=== PATIENT | female | born 1990 | race African-American/Black ===

== ENCOUNTER 2019-12-14 19:24 | Emergency (ER) | payer OTHER, SELFPAY ==
--- NOTE | 2019-12-14 19:38 | ED.GENADULT ---
HPI - General Adult General Chief complaint: Upper Respiratory Infection Stated complaint: sob/allergies Source: patient and RN notes reviewed Mode of arrival: ambulatory Limitations: no limitations History of Present Illness HPI narrative: This is a 29 years old female presents to the office for medication refill. States, she gets allergies trigger once a year during this time of year. However, she does not have a doctor now and she ran out of her inhaler. States, about three days ago she develops tightness in her chest when she takes a deep breathe. Associated with slight head congestion. Denies fever, cough or nausea. No treatment prior to arrival. Related Data Home Medications Medication Instructions Recorded Confirmed albuterol sulfate [ProAir HFA] 2 puff INHALATION QID PRN 12/14/19 12/14/19 Allergies Allergy/AdvReac Type Severity Reaction Status Date / Time peanut Allergy Swelling Verified 12/14/19 19:45 of Lip/Tongue/Throat Review of Systems Review of Systems: Narrative: CONSTITUTIONAL: Denies fever, chills ENT: Denies sore throat, otalgia. CARDIOVASCULAR: Denies chest pain RESPIRATORY: reports dyspnea with wheezing at times; denies cough. GASTROINTESTINAL: Denies abdominal pain, nausea, vomiting, diarrhea. GENITOURINARY: Denies urinary symptoms SKIN: Denies rash MUSCULOSKELETAL: Denies acute back pain NEUROLOGIC: Denies lightheaded PMFSH Past Medical History Medical History Asthma seasonal induced Social History Social History Smoking status: Never smoker Second hand tobacco smoke exposure: Yes (boyfriend smokes) Comments At time of signature, I agree with nursing past medical, surgical, social and family history. There is no relevant family history pertinent to the presenting complaint. Exam Narrative: Exam Narrative: GENERAL: This is a well-nourished, well-developed patient, in no apparent distress. EARS: External ears normal, auditory canals clear and without drainage, TMs normal without perforation. Hearing grossly intact. NOSE: External nose normal with no obvious nasal discharge, nares without redness, no rhinorrhea. THROAT: Mucous membranes moist, posterior pharynx clear with tonsils 2+ without erythema or exduative. NECK: Neck supple, non-tender without lymphadenopathy, masses or thyromegaly. CARDIOVASCULAR: Regular rate and rhythm without murmurs, gallops, or rubs. RESPIRATORY: Clear to auscultation. Breath sounds equal bilaterally. No wheezes, rales, or rhonchi. GASTROINTESTINAL: Abdomen soft, non-tender, nondistended. Bowel sounds are active. No guarding. SKIN: warm, intact with no suspicious lesions or rash, good texture and turgor. NEURO: awake, alert, and oriented to person, place and time. There were no obvious focal neurologic abnormalities. Steady gait Giovanni Coma Scale Eye Opening: Spontaneous 4 Giovanni Coma Scale Motor: Obeys Commands 6 [place] Coma Scale Verbal: Oriented 5 Medical Decision Making MDM Narrative Medical decision making narrative: Elevated BP noted: patient is informed that they may have pre-hypertension or hypertension based on a blood pressure reading in the department. I recommend the patient call the primary care provider listed on their discharge instructions or a physician of their choice this week to arrange follow-up for further evaluation of possible pre-hypertension or hypertension within 1-2week. Discharge instructions reviewed with patient, as well as provided in writing per nursing staff. The instructions also include specific and strict return/GO TO THE ER as well as f/u information. All questions have been answered, and the patient deny any further questions with discharge and discharge plan. Differential Diagnosis Differential Diagnosis: Allergic Rhinitis, Upper respiratory cough syndrome, Pharyngitis, Sinusitis, Bron
[2019-12-14 19:40] VITALS: BP 148/90; PULSE 97; RESP 16; TEMP 36.9; O2SAT 100
== END 2019-12-14 19:52 | disposition home or self-care (01) ==
PROVIDERS: Emergency Provider Nurse Practitioner
DX: J45.909 Unspecified asthma, uncomplicated (principal)
CPT/HCPCS: 99201; G0463

== ENCOUNTER 2020-07-11 19:20 | Emergency (ER) | payer OTHER, SELFPAY ==
[2020-07-11 19:25] VITALS: BP 131/78; PULSE 98; RESP 17; TEMP 35.8; O2SAT 100
--- NOTE | 2020-07-11 21:06 | ED.FEMALEGU ---
HPI - Female Genitourinary General Chief complaint: Vaginal Bleeding Stated complaint: 17 wks preg, spotting, cramping, lightheaded Time Seen by Provider: 07/11/20 21:02 Source: patient Mode of arrival: ambulatory Limitations: no limitations History of Present Illness HPI Narrative: Patient is a 30-year-old female G1, P5 currently 17 weeks who presents to the emergency department for evaluation of vaginal bleeding. Patient reports light spotting this morning that occurred when she awakened. She denied any lower pelvic pain, dysuria urgency. No recent sexual intercourse. No bleeding throughout this . Patient has followed at [place] gynecology office with Dr. NUNEZ. Patient states her blood type requires her to get RhoGam, RhoGam has not been administered at this stage in . Patient denies any large blood clots, vaginal discharge. No contraction-like pain. She denies any abdominal pain. She denies fever, chills, chest pain, shortness of breath. Patient states this has otherwise been uncomplicated. Related Data Home Medications Medication Instructions Recorded Confirmed [id number] 1 tablet PO DAILY 07/11/20 07/11/20 [] Allergies Allergy/AdvReac Type Severity Reaction Status Date / Time peanut Allergy Swelling Verified 07/11/20 19:34 of Lip/Tongue/Throat Review of Systems Review of Systems: Narrative: CONSTITUTIONAL: Denies fever, chills, or sweats. EYES: Denies visual changes, redness, or discharge. ENT: Denies rhinorrhea, congestion, sore throat, or otalgia. CARDIOVASCULAR: Denies chest pain, palpitations, or edema. RESPIRATORY: Denies cough or dyspnea. GASTROINTESTINAL: Denies abdominal pain, nausea, vomiting, or diarrhea. GENITOURINARY: Denies dysuria or hematuria. Reports vaginal bleeding. SKIN: Denies rash or itching. MUSCULOSKELETAL: Denies back pain, joint pain, or myalgia. NEUROLOGIC: Denies headache, numbness, or weakness. [facility] Past Medical History Medical History (Updated 07/11/20 @ 23:18 by Carline Mills MD) Asthma seasonal induced Social History Social History Smoking status: Never smoker Second hand tobacco smoke exposure: Yes (boyfriend smokes) Gender identity (if verbalized by the patient): Female Exam Narrative: Exam Narrative: GENERAL: Awake, alert, conversant HEAD: Normocephalic, atraumatic. EYES: PERRLA and EOMI. ENT: Nares clear, no rhinorrhea or epistaxis. Mucous membranes moist. NECK: Supple. CHEST: No respiratory distress, breathing even and non labored HEART: Regular rate, sinus rhythm ABDOMEN:Non distended, non tender, fundus palpable below the umbilicus, nontender : Labia majora and minora normal without lesions. Vagina without blood. No cervical motion tenderness. No adnexal tenderness or fullness bilaterally. No purulent discharge present, white mucoid discharge present. EXTREMITIES: Normal range of motion. No edema. SKIN: Warm, dry, no rash. NEURO:No focal deficits. Alert and oriented x3 Course Vital Signs Vital signs: Vital Signs Temperature 35.8 C L 07/11/20 19:25 Pulse Rate 98 07/11/20 19:25 Respiratory Rate 17 07/11/20 19:25 Blood Pressure 131/78 07/11/20 19:25 Pulse Oximetry 100 07/11/20 19:25 Temperature 35.8 C L 07/11/20 19:25 Pulse Rate 92 07/11/20 22:17 Respiratory Rate 17 07/11/20 19:25 Blood Pressure 118/84 07/11/20 22:17 Pulse Oximetry 100 07/11/20 19:25 MDM - Female Genitourinary MDM Narrative Medical decision making narrative: Patient presented for evaluation of spotting in the setting of second trimester . At the time of assessment, ABCs are intact and vital signs are stable. I did a pelvic exam without doing a cervical exam due to patient stage in , unknown if patient has placenta previa. There is no blood present on exam. There is white mucoid discha
[2020-07-11 21:34] LABS: Basophils Percent Auto 0.4 % (0.2-1.2); Eosinophils Absolute Auto 0.2 K/mm3 (0-0.3); Hematocrit 37.8 % (37.0-47.0); Hemoglobin 12.8 g/dL (12.0-15.0); Immature Granulocyte Absolute 0.07 K/mm3 (0.00-0.031); Immature Granulocyte Percent A 0.9 % (0-0.5); Lymphocytes Absolute Auto 1.79 K/mm3 (0.9-3.2); Lymphocytes Percent Auto 23.9 % (18.3-44.2); Mean Corpuscular HGB Conc 33.9 g/dl (32-36); Mean Corpuscular Hemoglobin 30.1 pg (26-34); Mean Corpuscular Volume 88.9 fl (80-100); Mean Platelet Volume 9.3 fl (7.4-10.4); Monocytes Absolute Auto 0.5 K/mm3 (0.1-0.6); Monocytes Percent Auto 6.3 % (2.6-8.5); Neutrophils Percent Auto 66.5 % (45.5-73.1); Platelet Count Result 262 k/mm3 (150-375); Red Blood Count 4.25 M/mm3 (4.2-5.4); Red Cell Distribution Width 12.4 % (11.5-14.5); White Blood Count 7.5 K/mm3 (4.5-10.0)
--- NOTE | 2020-07-11 21:37 | PC.NURSE ---
room set up for pelvic exam. labs pending. will hold on SL for now. patient aware. no questions.
--- NOTE | 2020-07-11 21:42 | PC.NURSE ---
OB RN here to check FHT.
[2020-07-11 21:45] LABS: Alanine Aminotransferase 10 U/L (4-35); Albumin Level 3.8 g/dL (3.5-5.1); Alkaline Phosphatase 45 U/L (38-126); Anion Gap 8 mmol/L (8-16); Aspartate Amino Transferase 19 U/L (14-36); Bilirubin,Total 0.2 mg/dL (0.2-1.3); Blood Urea Nitrogen 6 mg/dL (7-17); Calcium 9.2 mg/dL (8.4-10.2); Carbon Dioxide 28 mmol/L (22-30); Chloride 102 mmol/L (98-107); Estimated CRCL calculation 171 ml/min; Estimated Glomerular Filt Rate > 60; Glucose 94 mg/dL (65-105); INR 0.9; Prothrombin Time 11.6 Seconds (11.1-14.7); Sodium 138 mmol/L (137-145)
[2020-07-11 21:46] LABS: Partial Thromboplastin Time 27.4 SECONDS (22.3-36.8)
--- NOTE | 2020-07-11 21:47 | PC.NURSE ---
FHT dopplered at 164 per OB RN, Dr. Mills aware.
[2020-07-11 22:12] VITALS: BP 127/69; PULSE 77
[2020-07-11 22:16] VITALS: BP 117/71; PULSE 89
--- NOTE | 2020-07-11 22:16 | PC.NURSE ---
provider in room for pelvic exam. on call pharmacy technician present to assist.
[2020-07-11 22:17] VITALS: BP 118/84; PULSE 92
[2020-07-11 22:53] LABS: Add Urine Microscopic? YES; Appearance Urine Clear (Clear); Bilirubin Urine Negative (Negative); Blood Urine Negative (Negative); Color Urine Yellow (Yellow); Glucose Urine UA Negative (Negative); Ketones Urine Negative (Negative); Leukocyte Esterase Ur Negative LEU/UL (Negative); Mucus Urine Few /lpf; Nitrate Urine Negative (Negative); Protein Urine Negative (Negative); RBC Urine 0-2 /hpf (0-2); Specific Grav Ur 1.028 (1.001-1.035); Squamous Epithelial Cell Urine Occasional /hpf (Few); WBC Urine 0-3 /hpf
[2020-07-11] MEDS: RHO(D) IMMUNE GLOBULIN 300 MCG SYRINGE IM (22:57)
[2020-07-11 23:46] VITALS: BP 118/84; PULSE 81; RESP 16; TEMP 37.1; O2SAT 100
== END 2020-07-11 23:47 | disposition home or self-care (01) ==
PROVIDERS: Emergency Provider Emergency Medicine
DX: O20.9 Hemorrhage in early pregnancy, unspecified (principal); O23.592 Infection of other part of genital tract in pregnancy, second trimester; Z3A.17 17 weeks gestation of pregnancy; Z77.22 Contact with and (suspected) exposure to environmental tobacco smoke (acute) (chronic)
CPT/HCPCS: 36415; 80053; 81001; 84702; 85025; 85461; 85610; 85730; 90384; 96372; 99284; J2790

== ENCOUNTER 2020-08-24 11:57 | Observation (INO) | payer OTHER, MEDICAID, SELFPAY ==
--- NOTE | ~2020-08-24 | US_ITS ---
EXAMINATION: US OB limited DATE: 08/24/2020 13:32 INDICATION: Vaginal bleeding. Second trimester. TECHNIQUE: Real-time ultrasound of the pelvis was performed. COMPARISON: None. FINDINGS: There is a single fetus in transverse lie. The placenta is posterior, 1.3 cm from the cervix. No hem atoma. heart rate is 131 beats per minute (bpm). The amniotic fluid volume is subjectively norm al. IMPRESSION: 1. Single living fetus in transverse lie. 2. Low lying placenta. Reviewed, dictated and finalized at location B. [employer]
[2020-08-24 11:57] VITALS: BMI 27.6
[2020-08-24 12:13] VITALS: BP 113/61; PULSE 92
[2020-08-24 12:16] VITALS: BP 111/53; PULSE 86
[2020-08-24 12:31] VITALS: BP 115/64; PULSE 82
[2020-08-24 12:46] VITALS: BP 124/67; PULSE 78
--- NOTE | 2020-08-24 12:50 | WPDCN ---
Assessment and Plan Assessment and plan (1) Pelvic pain affecting , antepartum: Code(s): O26.899 - Other specified related conditions, unspecified trimester; R10.2 - Pelvic and perineal pain Status: Acute Assessment and Plan: No signs of labor. Most likely positional pain. Urine analysis. (2) Spotting affecting : Code(s): O26.859 - Spotting complicating , unspecified trimester Status: Acute Assessment and Plan: No blood seen in vagina or at cervix on exam. Will check blood type and antibody and rhogam due to history of noticing blood in underwear this morning. HPI Data of Consult Date/Time: 08/24/20 12:50 Requesting Physician: Edwin Bravo MD Primary Care Provider: CERTIFIED WELDER PHYSICIAN Consult Narrative Narrative: Farheen Jama is a 30 year old female at 22 weeks presented to L and D for complaints of pelvic pain/pressure for two days. She states she had spotting when she wiped,this morning. She states PNC significant for spotting intermittently since beginning of . She states blood type is O neg. She had recent ultrasound and was told placenta is low lying. She states she was not put on pelvic rest. Denies dysuria. Has been cleaning up this weekend. Denies intercourse recently. On L and D, reassuring tracing FHT 145, mild irritability. Review of Systems Review of Systems: All systems reviewed & are unremarkable except as noted in HPI and below Constitutional: Constitutional: Reports no additional constitutional complaints and Denies headache(s) Eyes: Eyes: Denies spots in vision ENT: Reports system reviewed and no additional complaints, except as documented and Denies headache(s) Cardiovascular: Cardiovascular: Denies chest pain and Denies dyspnea Respiratory: Respiratory: Denies dyspnea Genitourinary: Genitourinary: Reports no additional female genitourinary complaints Integumentary/Breasts: Skin/Breast: Denies rash Neurologic: Denies headache(s) Hematologic/Lymphatic: Hematologic/Lymphatic: Reports no additional hematologic/lymphatic complaints Allergic/Immunologic: Allergic/Immunologic: Reports no additional allergic/immunologic complaints PMFSH Past Medical History Medical History (Updated 08/24/20 @ 13:03 by Edwin Bravo MD) Asthma seasonal induced Social History Social History Smoking status: Never smoker Second hand tobacco smoke exposure: Yes (boyfriend smokes) Gender identity (if verbalized by the patient): Female Meds Home Medications and Allergies Home Medications Medication Instructions Recorded Confirmed Type acetaminophen 500 mg PO Q6H PRN #30 cap 07/11/20 Rx metronidazole [Flagyl] 500 mg PO Q12H 10 Days #20 tablet 07/11/20 Rx [id number] 1 tablet PO DAILY 07/11/20 07/11/20 History [] Allergies Allergy/AdvReac Type Severity Reaction Status Date / Time peanut Allergy Swelling Verified 07/11/20 19:34 of Lip/Tongue/Throat Vital Signs Vital Signs - 24 hr 08/24/20 12:13 08/24/20 12:16 08/24/20 12:31 Pulse Rate 92 86 82 Blood Pressure 113/61 111/53 L 115/64 08/24/20 12:46 Pulse Rate 78 Blood Pressure 124/67 Exam Const: General: comfortable and no acute distress Eyes: General: appearance normal, both eyes and all related structures Resp: Effort & Inspection: normal respiratory effort GI: Other: no fundal tenderness, mild suprapubic tenderness : Other: sterile speculum exam- NEFG, vagina normal, cervix visualized, not visually dilated, no blood or abnormal appearing discharge. Extrem: Other: nontender Psych: Appearance: grossly normal and well kempt
[2020-08-24 13:01] VITALS: BP 118/46; PULSE 78
[2020-08-24 13:18] LABS: Add Urine Microscopic? YES; Appearance Urine Clear (Clear); Bacteria Urine Trace /hpf; Bilirubin Urine Negative (Negative); Blood Urine Negative (Negative); Color Urine Yellow (Yellow); Glucose Urine UA Negative (Negative); Ketones Urine Negative (Negative); Leukocyte Esterase Ur Negative LEU/UL (Negative); Mucus Urine Rare /lpf; Nitrate Urine Negative (Negative); Protein Urine Negative (Negative); RBC Urine 0-2 /hpf (0-2); Specific Grav Ur 1.014 (1.001-1.035); Squamous Epithelial Cell Urine Rare /hpf (Few); WBC Urine 0-3 /hpf
--- NOTE | 2020-08-24 13:32 | OBADM ---
This patient, Farheen Jama, admitted to the OB room OB Post 115 for observation. Patient/family oriented to hospital policies and general routines including ID bracelet, bed and alarms, visiting hours, pain management, procedures, bathroom and other care routines, personal items, smoking policy, room service/diet, and visiting hours. Patient/Family are encouraged to report perceived risks to care and to ask questions if they do not understand what they are told or what they should do. Pt. reports vaginal bleeding accompanied with abdominal pain. She receives her PNC in [place] and states she has had spotting her whole and has a known Low lying placenta. Abdomen soft to palpation and no vaginal bleeding visualized at this time.
== END 2020-08-24 16:14 | disposition home or self-care (01) ==
PROVIDERS: Admitting Provider Obstetrics & Gynecology; Visit Provider Obstetrics & Gynecology
DX: O26.852 Spotting complicating pregnancy, second trimester (principal); O26.892 Other specified pregnancy related conditions, second trimester; R10.2 Pelvic and perineal pain; Z3A.22 22 weeks gestation of pregnancy; O44.42 Low lying placenta NOS or without hemorrhage, second trimester
CPT/HCPCS: 36415; 76815; 81001; 85460; 86850; 86880; 86900; 86901; G0378; G0379

== ENCOUNTER 2021-03-09 19:55 | Emergency (ER) | payer OTHER, MEDICAID, SELFPAY ==
--- NOTE | ~2021-03-09 | XR_ITS ---
EXAMINATION: XR femur LT min 2V DATE: 03/09/2021 22:20 INDICATION: Left thigh pain. TECHNIQUE: 3 views of left femur on 4 radiographs were obtained. COMPARISON: None. FINDINGS: Bone alignment is normal. No fracture. Joint spaces are well maintained. There is no knee j oint effusion. IMPRESSION: 1. Normal left femur. Reviewed, dictated and finalized at location A. IMPRESSION: 1. Normal left femur.
--- NOTE | ~2021-03-09 | US_ITS ---
EXAMINATION:US venous doppler LE LT INDICATION:Left leg pain TECHNIQUE: Multiple grayscale, color flow and Doppler images of the left lower extremity deep venous systems were obtained and reviewed. COMPARISON:No prior studies for comparison. FINDINGS: The common femoral, superficial femoral and popliteal veins demonstrate normal respiratory variation, augmentation and compressibility. Color flow is also seen within the posterior tibial, pe roneal, greater saphenous and profunda veins. IMPRESSION: 1: No lower extremity deep venous thrombosis. Reviewed, dictated and finalized at location A.
--- NOTE | ~2021-03-09 | XR_ITS ---
EXAMINATION: XR chest 2V DATE: 03/09/2021 21:15 INDICATION: Intermittent chest pain. TECHNIQUE: Frontal and lateral views of the chest were obtained. COMPARISON: None. FINDINGS: The chest demonstrates clear lungs without pneumonia, pleural effusion, or pneumothorax. Th e heart size is normal. IMPRESSION: 1. No acute cardiopulmonary disease. Reviewed, dictated and finalized at location A.
[2021-03-09 20:32] VITALS: BP 153/95; PULSE 90; RESP 18; TEMP 36.9; O2SAT 100
--- NOTE | 2021-03-09 20:36 | ECG_ITS ---
Measurements Intervals Williams Rate: 87 P: 64 CA: 161 QRS: -6 QRSD: 105 T: 33 QT: 371 QTc: 448 Interpretive Statements SINUS RHYTHM BASELINE ARTIFACT- I, III, V4-V6 NORMAL ECG Electronically Signed On 03-10-2021 6:24:58 CDT by Terence Phillips D.O.
[2021-03-09 20:53] LABS: Basophils Absolute Auto 0.1 K/mm3 (0.0-0.1); Basophils Percent Auto 0.8 % (0.2-1.2); Eosinophils Absolute Auto 0.1 K/mm3 (0-0.3); Eosinophils Percent Auto 1.6 % (0-4.4); Hematocrit 42.3 % (37.0-47.0); Hemoglobin 13.6 g/dL (12.0-15.0); Immature Granulocyte Absolute 0.01 K/mm3 (0.00-0.031); Immature Granulocyte Percent A 0.2 % (0-0.5); Lymphocytes Absolute Auto 2.79 K/mm3 (0.9-3.2); Lymphocytes Percent Auto 43.8 % (18.3-44.2); Mean Corpuscular HGB Conc 32.2 g/dl (32-36); Mean Corpuscular Hemoglobin 27.8 pg (26-34); Mean Corpuscular Volume 86.3 fl (80-100); Mean Platelet Volume 9.4 fl (7.4-10.4); Monocytes Absolute Auto 0.5 K/mm3 (0.1-0.6); Monocytes Percent Auto 7.1 % (2.6-8.5); Neutrophils Percent Auto 46.5 % (45.5-73.1); Platelet Count Result 351 k/mm3 (150-375); Red Cell Distribution Width 13.5 % (11.5-14.5); White Blood Count 6.4 K/mm3 (4.5-10.0)
[2021-03-09 21:01] LABS: INR 0.9; Prothrombin Time 12.7 Seconds (11.1-14.7)
[2021-03-09 21:02] LABS: Partial Thromboplastin Time 31.2 SECONDS (22.3-36.8)
[2021-03-09 21:03] LABS: Anion Gap 9 mmol/L (8-16); Blood Urea Nitrogen 6 mg/dL (7-17); Calcium 9.4 mg/dL (8.4-10.2); Carbon Dioxide 26 mmol/L (22-30); Chloride 106 mmol/L (98-107); Estimated CRCL calculation 107 ml/min; Estimated Glomerular Filt Rate > 60; Glucose 104 mg/dL (65-105); Potassium 3.9 mmol/L (3.4-5.0); Sodium 141 mmol/L (137-145)
[2021-03-09 21:15] LABS: Troponin I < 0.012 ng/mL (0.000-0.034)
[2021-03-09 21:18] LABS: D Dimer 0.27 ug/mL (<0.48)
[2021-03-09 21:23] VITALS: BP 170/96; PULSE 89; RESP 18; O2SAT 100
[2021-03-09 22:28] VITALS: BP 146/78; PULSE 80; RESP 15
[2021-03-09] MEDS: IBUPROFEN 600 MG TABLET PO (22:28)
--- NOTE | 2021-03-09 22:28 | ED.GENADULT ---
HPI - General Adult General Chief complaint: Extremity Problem,Nontraumatic Stated complaint: left leg pain, r/o dvt Time Seen by Provider: 03/09/21 21:57 Source: RN notes reviewed History of Present Illness HPI narrative: Patient presents to emergency department from home for left lateral thigh pain patient symptoms began 2 days ago. The pain is located left lateral thigh and does not radiate described as aching in nature pain is worse with ambulating and resolves with rest she denies any trauma or injury patient was concerned as she does have a history of blood clots in her family is concerned about a blood clot. Patient states she does not have any history of blood clots or self patient also notes a feeling of intermittent chest tightness that occurs for proxy 1 to 2 seconds a few times a day for the past several days states last episode was earlier this afternoon denies any current chest pain or shortness of breath denies any fevers or chills abdominal pain nausea Related Data Home Medications Medication Instructions Recorded Confirmed [id number] 1 tablet PO DAILY 07/11/20 08/24/20 acetaminophen 500 mg PO Q6H PRN 08/24/20 08/24/20 Allergies Allergy/AdvReac Type Severity Reaction Status Date / Time peanut Allergy Swelling Verified 03/09/21 20:37 of Lip/Tongue/Throat Review of Systems Review of Systems: Narrative: Gen.: Denies fevers or chills Eyes: Denies eye pain or visual change ENT: Denies congestion Respiratory: Denies shortness of breath or cough CV: Reports occasional chest pain GI: Denies abdominal pain nausea, emesis or diarrhea Musculoskeletal: See HPI Neuro: Denies numbness, tingling, weakness or focal weakness Skin: Denies rash Except as documented, all other systems reviewed and negative [facility] Past Medical History Medical History (Updated 03/09/21 @ 22:33 by Demar Simpson DO) Asthma seasonal induced Social History Social History Smoking status: Never smoker Second hand tobacco smoke exposure: Yes (boyfriend smokes) Gender identity (if verbalized by the patient): Female Exam Narrative: Exam Narrative: APPEARANCE: No acute distress, nontoxic, resting in bed EYES: EOMI HEENT: Normocephalic, atraumatic, OMM RESPIRATORY: No respiratory distress Clear to auscultation bilaterally with no rhonchi wheezing or rales. CARDIOVASCULAR: Regular rate and rhythm without murmurs rubs or gallops. ABDOMINAL: Soft, nontender, nondistended, no rebound or guarding MUSCULOSKELETAl: Moves all extremities. No clubbing, cyanosis or edema. Tender to palpation over left lateral mid thigh with point tenderness no tenderness of the hip or knee with full range of motion of both no overlying ecchymosis or rash dorsalis pedis pulse 2+ neurovascular intact, no left calf tenderness NEURO: Awake and alert. Following commands, speech normal, no focal deficits SKIN:: Warm, dry. No rashes lesions or abrasions PSYCHIATRIC: Normal affect/mood, Course Course Emergency Course: Discussed with Dr. Leos presentation and work-up agrees with plan for patient be set up as an outpatient ultrasound rule out DVT in left lower extremity Discussed with patient results of workup and diagnosis. Discussed need for follow-up with primary care, proper use of medication, and reasons to return to the emergency department. Patient understands and agrees to current treatment plan ultrasound morning and set up for 7:30 AM ultrasound Vital Signs Vital signs: Vital Signs Temperature 98.5 F 03/09/21 20:32 Pulse Rate 90 03/09/21 20:32 Respiratory Rate 18 03/09/21 20:32 Blood Pressure 153/95 H 03/09/21 20:32 Pulse Oximetry 100 03/09/21 20:32 Temperature 98.5 F 03/09/21 20:32 Pulse Rate 74 03/09/21 22:30 Respiratory Rate 16 03/09/21 22:30 Blood Pressure 146/78 H 03/09/21 22:30 Pulse Oximetry 100 03/09/21 22:30 Medical Decision
[2021-03-09 22:30] VITALS: BP 146/78; PULSE 74; RESP 16; O2SAT 100
[2021-03-09] MEDS: ENOXAPARIN 100 MG/ML SYRINGE SUB-Q (22:41)
[2021-03-09 22:43] VITALS: BP 142/75; PULSE 72; RESP 18; O2SAT 99
== END 2021-03-09 23:13 | disposition home or self-care (01) ==
PROVIDERS: Emergency Provider Emergency Medicine
DX: M79.652 Pain in left thigh (principal); R07.89 Other chest pain
CPT/HCPCS: 36415; 71046; 73552; 80048; 84484; 85025; 85380; 85610; 85730; 93005; 93971; 96372; 99284; A9270; J1650